=== PATIENT | female | born 1945 | race Caucasian/White ===

== ENCOUNTER → 2023-09-15 12:10 | Outpatient (REF) | payer MEDICARE, OTHER, SELFPAY | LOC: HWRAD 12:10 | PROVIDERS: ATTENDING PHYSICIAN Internal Medicine | DX: M81.0 Age-related osteoporosis without current pathological fracture (principal) | CPT/HCPCS: 77080 ==

== ENCOUNTER → 2023-10-02 12:21 | Outpatient (REF) | payer MEDICARE, OTHER, SELFPAY ==
[2023-10-02 16:41] LABS: ALT (SGPT) 33 U/L (0-35); AST (SGOT) 36 U/L (14-36); Albumin 4.4 g/dl (3.5-5.0); Alkaline Phosphatase 70 U/L (38-126); Blood Urea Nitrogen 10 mg/dl (7-17); Calcium 9.4 mg/dl (8.4-10.2); Carbon Dioxide 26 mmol/L (22-30); Chloride 106 mmol/L (98-107); Glucose 81 mg/dl (70-99); HDL Cholesterol 67 mg/dl; LDL Cholesterol, Calculated 76 mg/dl; Potassium 3.7 mmol/L (3.5-5.1); Sodium 137 mmol/L (135-145); Total Bilirubin 0.8 mg/dl (0.2-1.3); Total Cholesterol 157 mg/dl (50-199); Total Protein 6.8 g/dl (6.3-8.2); Triglyceride 71 mg/dl (10-149); Very Low Density Lipoprotein 14 mg/dl (0-30); eGFR > 60.00
== END ==
LOC: HWLAB 12:21
PROVIDERS: ATTENDING PHYSICIAN Internal Medicine
DX: E78.5 Hyperlipidemia, unspecified (principal)
CPT/HCPCS: 36415; 80053; 80061

== ENCOUNTER → 2023-11-30 08:09 | Outpatient (REF) | payer MEDICARE, OTHER, SELFPAY | LOC: HWWDC 08:09 | PROVIDERS: ATTENDING PHYSICIAN Internal Medicine; REFERRING PHYSICIAN Obstetrics & Gynecology | DX: Z12.31 Encounter for screening mammogram for malignant neoplasm of breast (principal) | CPT/HCPCS: 77063; 77067 ==

== ENCOUNTER → 2024-01-11 07:48 | Outpatient (REF) | payer MEDICARE, OTHER, SELFPAY | LOC: WDC 07:48 | PROVIDERS: ATTENDING PHYSICIAN Internal Medicine | DX: R92.8 Other abnormal and inconclusive findings on diagnostic imaging of breast (principal) | CPT/HCPCS: 76642 ==

== ENCOUNTER → 2024-05-01 10:29 | Outpatient (REF) | payer MEDICARE, OTHER, SELFPAY ==
[2024-05-01 12:27] LABS: % Basophils 0.7 % (0-2); % Immature Granulocytes 0.2 % (0-0.5); % Lymphocytes 20.2 % (20.5-51.1); % Neutrophils 67.9 % (42.2-75.2); Absolute Eosinophils 0.1 10^3/uL (0-0.7); Absolute Lymphocytes 1.1 10^3/uL (1.2-3.4); Absolute Monocytes 0.5 10^3/uL (0.1-0.6); Absolute Neutrophils 3.7 10^3/uL (1.4-6.5); Hematocrit 37.8 % (37.0-47.0); Hemoglobin 13.1 g/dL (12.0-16.0); Mean Corp Hgb Conc. 34.7 g/dL (33.0-37.0); Mean Corpuscular Hgb 30.5 pg (27.0-31.0); Mean Corpuscular Volume 88.1 fL (81.0-99.0); Nucleated Red Blood Cells % 0 %; Platelet Count 194 10^3/uL (130-400); Red Blood Cell Count 4.29 10^6/uL (4.20-5.40); Red Cell Dist. Width 12.3 % (11.5-14.5); White Blood Cell Count 5.5 10^3/uL (4.8-10.8)
[2024-05-03 14:22] LABS: Lyme Antibody Screen, EIA Negative (Negative)
== END ==
LOC: HWRAD 10:29
PROVIDERS: ATTENDING PHYSICIAN Internal Medicine
DX: M25.562 Pain in left knee (principal)
CPT/HCPCS: 36415; 73564; 85025; 86618

== ENCOUNTER → 2024-08-27 10:03 | Outpatient (REF) | payer MEDICARE, OTHER, SELFPAY ==
[2024-08-27 15:12] LABS: ALT (SGPT) 26 U/L (0-35); AST (SGOT) 30 U/L (14-36); Albumin 4.8 g/dl (3.5-5.0); Alkaline Phosphatase 76 U/L (38-126); Blood Urea Nitrogen 15 mg/dl (7-17); Calcium 9.7 mg/dl (8.4-10.2); Carbon Dioxide 24 mmol/L (22-30); Chloride 104 mmol/L (98-107); Glucose 86 mg/dl (70-99); HDL Cholesterol 74 mg/dl; LDL Cholesterol, Calculated 93 mg/dl; Potassium 4.1 mmol/L (3.5-5.1); Sodium 138 mmol/L (135-145); Total Bilirubin 0.7 mg/dl (0.2-1.3); Total Cholesterol 180 mg/dl (50-199); Triglyceride 68 mg/dl (10-149); Very Low Density Lipoprotein 13 mg/dl (0-30); eGFR > 60.00
[2024-08-27 15:20] LABS: Free T3 3.45 pg/ml (2.77-5.27); Free T4 1.59 ng/dl (0.78-2.19)
== END ==
LOC: HWLAB 10:03
PROVIDERS: ATTENDING PHYSICIAN Internal Medicine
DX: E78.5 Hyperlipidemia, unspecified (principal); E03.9 Hypothyroidism, unspecified
CPT/HCPCS: 36415; 80053; 80061; 84439; 84443; 84481

== ENCOUNTER 2024-12-01 03:57 | Emergency (ER) | payer MEDICARE, OTHER, SELFPAY ==
[2024-12-01] VITALS (8 sets, daily range): BP systolic 106–145; BP diastolic 50–72; BMI 23.7
[2024-12-01 04:26] LABS: % Basophils 0.3 % (0-2); % Eosinophils 0.2 % (0-6); % Immature Granulocytes 0.6 % (0-0.5); % Lymphocytes 6.5 % (20.5-51.1); % Monocytes 6.5 % (1.7-9.3); % Neutrophils 85.9 % (42.2-75.2); Absolute Lymphocytes 0.4 10^3/uL (1.2-3.4); Absolute Monocytes 0.4 10^3/uL (0.1-0.6); Absolute Neutrophils 5.7 10^3/uL (1.4-6.5); Hemoglobin 13.2 g/dL (12.0-16.0); Mean Corp Hgb Conc. 34.7 g/dL (33.0-37.0); Mean Corpuscular Hgb 30.4 pg (27.0-31.0); Mean Corpuscular Volume 87.6 fL (81.0-99.0); Mean Platelet Volume 10.5 fL (7.4-10.4); Nucleated Red Blood Cells % 0 %; Platelet Count 158 10^3/uL (130-400); Red Blood Cell Count 4.34 10^6/uL (4.20-5.40); Red Cell Dist. Width 12.9 % (11.5-14.5); White Blood Cell Count 6.7 10^3/uL (4.8-10.8)
[2024-12-01 05:00] LABS: ALT (SGPT) 23 U/L (0-35); AST (SGOT) 26 U/L (14-36); Albumin 4.1 g/dl (3.5-5.0); Alkaline Phosphatase 50 U/L (38-126); Blood Urea Nitrogen 20 mg/dl (7-17); Carbon Dioxide 23 mmol/L (22-30); Chloride 103 mmol/L (98-107); Estimated Creatinine Clearance 52 ml/min; Glucose 109 mg/dl (70-99); Sodium 135 mmol/L (135-145); Total Bilirubin 0.9 mg/dl (0.2-1.3); Total Protein 6.4 g/dl (6.3-8.2); eGFR > 60.00
[2024-12-01 05:15] LABS: Troponin I < 0.012 ng/ml
--- NOTE | 2024-12-01 07:19 | ED.GENMED ---
History of Present Illness
General
Chief Complaint: Weakness
Source: patient and spouse
Exam Limitations: none
Time Seen by Provider: 12/01/24 06:56
History of Present Illness
History of Present Illness:
79yoF with a history of hypertension, hyperlipidemia, heart block s/p pacemaker, and hypothyroidism presenting with her for evaluation of fatigue. Patient was in [place] last week on a trip. She started to have diarrhea 2 days ago and had
1 episode of vomiting which has since resolved. She was not feeling well yesterday so they left the trip early and drove home. states she slept the entire 8-hour drive home. They stopped at a rest stop midway and patient seemed to have
some difficulty ambulating initially which improved the longer she walker. She was eating pizza for dinner last night and took a very long time eating 1 slice. states she kept nodding off during the meal. went to bed and woke up
around 3am this morning and noticed that she wasn't in bed. found her asleep at the kitchen table. He became concerned and called EMS. Patient denies any symptoms at this time and states she feels fine. She denies any headache,
dizziness, falls, chest pain, shortness of breath, abdominal pain, fevers, dysuria. She has not had any vomiting or diarrhea in over 24 hours. Of note, patient forgot to bring her medications with her on the trip so she did not take her
lisinopril, atorvastatin, and levothyroxine for the past week.
Phy Exam
Physical Exam
Physical Exam:
Appears fatigued but arouses easily and able to answer questions appropriately
General Physical Exam
General Presentation: well appearing and no apparent distress
General Skin: warm and dry
General Habitus: normal and elderly
General Mental: alert
ENT Exam
ENT Exam: TM's normal and normocephalic
Eye Exam
Eye Exam: PERRL and conjunctiva normal
Cardiovascular Exam
Cardiovascular Exam: regular rate/rhythm
Pulmonary Exam
Pulmonary Exam: lungs clear, no respiratory distress, no rales, no crackles, no rhonchi and no wheezing
Gastrointestinal Exam
Gastrointestinal Exam: non tender, soft and non distended
Neurological Exam
Neurological Exam: alert, oriented x3, no motor deficits and other (Oriented to person, place, and time. 5/5 strength in all extremities. Able to ambulate without assistance)
[place] Coma Scale
Eye Opening: Spontaneous
Verbal Response: Oriented
Motor Response: Obeys Commands
GCS Total Score: 15
Skin Exam
Skin Exam: normal color and warm/dry
Psychiatric Exam
Psychiatric Exam: normal mood/affect
Course
Orders/Labs/Results
Orders:
Orders
12/01/24 04:08
Electrocardiogram (*1) Urgent
Reason for Study: Fatigue / Weakness
EKG- Treatment ONCE
12/01/24 04:19
CMP [Comprehensive Metabolic Panel] Urgent
Complete Blood Count/With Diff Urgent
Magnesium Urgent
TSH Reflex To Free T4 Urgent
12/01/24 04:41
Interrogated [Interrogate Pacemaker- Treatment] ONCE
12/01/24 04:43
Troponin I Urgent
12/01/24 04:[address] [CT Head W/o Iv Contrast] Urgent
Comment: patient is back to baseline at this time
Reason For Exam: weakness and change in mental status.
12/01/24 06:57
Add On- LAB Urgent
Tests Added?: magnesium
12/01/24 07:19
0.9% Sodium Chloride 500 ml [Nss] 500 ml IV BOLUS
12/01/24 07:33
Ammonia Urgent
COVID-19 Antigen Urgent
Source: Nasal Swab
Monotest Urgent
Urinalysis Reflex To Culture Urgent
Date Specimen was Collected: 12/01/24
Time Specimen was Collected: 07:25
Urine Microscopic Reflex Cult Urgent
Venous Blood Gas Urgent
%Oxygen/Room Air: room air
Influenza A+B Rapid Molecular Urgent
ERNESTO Source: Nasal Swab
Specimen Description:
Abnormal Lab Results
12/01/24 12/01/24
04:19 07:33
MPV 10.5 H fL
(7.4-10.4)
Absolute Lymphs (auto) 0.4 L 10^3/uL
(1.2-3.4)
Immature Gran % 0.6 H %
(0-0.5)
Neutrophils % 85.9 H %
(42.2-75.2)
Lymphocytes % 6.5 L %
(20.5-51.1)
VBG pCO2 51 H mmHg
(35-48)
BUN 20 H mg/dl
(7-17)
Glucose 109 H mg/dl
(70-99)
Ammonia < 9 L umol/L
(9-30)
Ur Occult Blood Reflex 1+ A
(Negative)
Monoscreen Positive A
(Negative)
12/01/24 04:19
12/01/24 04:19
Vital Signs
Initial and Last Documented VS:
Initial Vital Signs
Temp Pulse Resp BP Pulse Ox
97.5 F 80 18 138/52 100
12/01/24 04:00 12/01/24 04:00 12/01/24 04:00 12/01/24 04:00 12/01/24 04:00
Last Documented Vital Signs
Temp Pulse Resp BP Pulse Ox
97.5 F 68 18 135/56 100
12/01/24 04:00 12/01/24 09:26 12/01/24 09:26 12/01/24 09:26 12/01/24 09:26
MDM/Problems Addressed
Differential Diagnosis Includes:
79yoF here with fatigue. concerned because she has been sleeping excessively since yesterday. Had an 8 hour trip home from [place] yesterday. Had v/d 2 days ago which has resolved. Patient otherwise denies symptoms. She appears fatigued but
arouses easily. She is A&Ox3. There is full strength in all extremities and she is able to ambulate independently. Differential diagnosis includes but is not limited to: dehydration, electrolyte abnormality, COLE, viral illness, UTI
Workup initiated prior to initial exam. Labs overall unremarkable including normal electrolytes, renal function, glucose, and TSH. EKG shows paced rhythm with frequent PVCs. Pacemaker interrogated and no events reported. CT head negative for acute
findings. Will check COVID/flu swab, monospot, ammonia, VBG, and UA. IV fluid bolus.
*EKG
Interpreted by ED Provider?: Yes
EKG Intrepretation Date: 12/01/24
Heart Rate: 77
Rate: normal
Rhythm: PVC's and ventricular paced
[place]: left axis deviation
Ischemia: no ischemia
*Critical Care Note
Total Time (30-74mins, 75-104mins- exclusive of procedures): Not Applicable
Update Note
Update Note:
Monospot is positive although unclear if this is a false positive as she has no sore throat/URI symptoms. Ammonia normal. No significant hypercarbia on VBG and venous pH is normal. COVID/flu negative. UA bland without signs of infection.
Patient is awake, alert, and laughing on reassessment. states she seems much better. Suspect fatigue may be from recent stomach bug/viral illness and travel yesterday. No indication for hospitalization. She was advised to f/u with her
PCP in 2-3 days. ED return precautions discussed. Patient and in agreement with plan and she was discharged in stable condition.
ED Attending Note
-
Portions of this chart may have been created with voice recognition software.� Occasional wrong word or��sound alike� substitutions may have occurred due to the inherent limitations of voice recognition software.
Discharge Plan
Departure
Patient Disposition: Home (Routine Discharge)
Date of Disposition: 12/01/24
Time of Disposition: 09:24
Patient with high blood pressure during this ER visit?: No
Discharge Problem:
Fatigue
Instructions: Fatigue (DC)
Prescriptions:
No Action
atorvastatin 10 MG tablet
10 mg PO QPM
levothyroxine 125 MCG tablet
88 mcg PO DAILY AT 0700
valacyclovir 500 mg Tablet
1,000 mg PO DAILY PRN (Reason: cold sores)
Referrals:
Wen Costa MD [Family Provider] -
Activity Restrictions/Additional Instructions:
Please follow-up with your family doctor in 2-3 days. Return to the ER with any new or worsening symptoms.
Interventions
Interventions:
*Risk Screen - Suicide Last Done: 12/01/24 04:00
*General Assessment Last Done: 12/01/24 04:00
*Neglect/Abuse Screening Last Done: 12/01/24 04:00
*ED- Fall Risk Assessment Last Done: 12/01/24 04:00
*ED COVID-19 Vaccine History Last Done: 12/01/24 04:07
*Nursing Disposition Last Done: 12/01/24 10:04
ED- Cardiac Assessment Last Done: 12/01/24 04:36
ED- Neurological Assessment Last Done: 12/01/24 04:36
ED- Pulmonary Assessment Last Done: 12/01/24 04:36
Discharge Date and Time
Discharge Date/Time: 12/01/24 10:05
Print Language: POLISH
[2024-12-01 07:54] LABS: Venous Blood Gas B.E. -0.6 mmol/L (-4 to +4); Venous Blood Gas HCO3 26.3 mmol/L (22-27); Venous Blood Gas O2 Sat % 58.9 %; Venous Blood Gas pCO2 51 mmHg (35-48); Venous Blood Gas pH 7.32 (7.32-7.43); Venous Blood Gas pO2 35 mmHg (30-50)
[2024-12-01 07:57] LABS: Venous Blood Gas O2 Therapy room air
[2024-12-01 08:12] LABS: Urine Albumin Negative (Neg - Trace); Urine Bilirubin Negative (Negative); Urine Character Clear (Clear); Urine Color Yellow; Urine Glucose Negative (Negative); Urine Ketone Negative (Negative); Urine Leukocyte Negative (Negative); Urine Nitrite Negative (Negative); Urine Occult Blood 1+ (Negative); Urine Specific Gravity 1.015 (<1.030); Urine Urobilinogen Negative (Neg - 1+)
[2024-12-01 08:15] LABS: Ammonia < 9 umol/L (9-30); COVID-19 Antigen Negative (Negative)
[2024-12-01 08:24] LABS: Urine Red Blood Cell 0-2 /HPF (0-2); Urine Squamous Cell 0-2 /LPF (Few); Urine White Cell 0-2 /HPF (0-5)
[2024-12-01] MEDS: NSS 500 IV (08:29)
[2024-12-01 08:39] LABS: Magnesium 2.2 mg/dl (1.6-2.3)
[2024-12-01 09:33] LABS: Monotest Positive (Negative)
== END 2024-12-01 10:05 | disposition home or self-care (01) ==
LOC: EMR 03:57
PROVIDERS: Emergency Medicine; Physician Assistant; EMERGENCY PHYSICIAN Emergency Medicine; FAMILY PHYSICIAN Internal Medicine
DX: R53.83 Other fatigue (principal); I10 Essential (primary) hypertension; E78.5 Hyperlipidemia, unspecified; E03.9 Hypothyroidism, unspecified; Z95.0 Presence of cardiac pacemaker; Z11.52 Encounter for screening for COVID-19
CPT/HCPCS: 96360; 99284; 70450; 80053; 81003; 81015; 82140; 82805; 83735; 84443; 84484; 85025; 86308; 87502; 87811; 93005

== ENCOUNTER → 2025-02-20 08:15 | Outpatient (REF) | payer MEDICARE, OTHER, SELFPAY ==
[2025-02-20 10:36] LABS: ALT (SGPT) 17 U/L (0-35); AST (SGOT) 25 U/L (14-36); Albumin 4.5 g/dl (3.5-5.0); Alkaline Phosphatase 53 U/L (38-126); Blood Urea Nitrogen 14 mg/dl (7-17); Calcium 9.0 mg/dl (8.4-10.2); Carbon Dioxide 22 mmol/L (22-30); Chloride 109 mmol/L (98-107); Glucose 81 mg/dl (70-99); HDL Cholesterol 65 mg/dl; LDL Cholesterol, Calculated 110 mg/dl; Potassium 4.0 mmol/L (3.5-5.1); Sodium 139 mmol/L (135-145); Total Protein 6.9 g/dl (6.3-8.2); Very Low Density Lipoprotein 11 mg/dl (0-30); eGFR > 60.00
[2025-02-20 11:36] LABS: Free T3 3.06 pg/ml (2.77-5.27)
[2025-02-20 11:50] LABS: TSH 3.40 uIU/ml (0.47-4.68)
[2025-02-20 12:26] LABS: Folate 15.7 ng/ml (2.76-20); Vitamin B12 337 pg/ml (239-931)
[2025-02-21 13:55] LABS: Syphilis/T. pallidum Ab Reflex Negative (Negative)
== END ==
LOC: HWLAB 08:15
PROVIDERS: ATTENDING PHYSICIAN Internal Medicine
DX: R41.82 Altered mental status, unspecified (principal); E03.9 Hypothyroidism, unspecified; E78.5 Hyperlipidemia, unspecified
CPT/HCPCS: 80053; 80061; 82607; 82746; 84439; 84443; 84481; 86780

== ENCOUNTER → 2025-06-20 13:28 | Outpatient (REF) | payer MEDICARE, OTHER, SELFPAY | LOC: MRI 13:28 | PROVIDERS: ATTENDING PHYSICIAN Internal Medicine | DX: R41.82 Altered mental status, unspecified (principal); R93.0 Abnormal findings on diagnostic imaging of skull and head, not elsewhere classified; Z95.0 Presence of cardiac pacemaker | CPT/HCPCS: 70551 ==